=== PATIENT | female | born 2000 | race Hispanic/Latino ===

== ENCOUNTER 2024-01-25 21:55 | Emergency (ER) | payer SELFPAY ==
[~2024-01-25] VITALS: Ht 162.6 cm; Wt 104.2 kg
[2024-01-25] MEDS ORDERED: HYDROCODON-ACE1 EA10 PO (23:07)
[2024-01-25] MEDS ORDERED: DOXYCYCLINE HYCLATE 100 MG HOME.PACK PO ONE (23:15)
[2024-01-25] MEDS ORDERED: HYDROCODONE BIT/ACETAMINOPHEN 5/325 MG 1 TAB HOME.PACK PO ONE (23:15)
[2024-01-25 23:33] VITALS: BP 108/65
== END 2024-01-25 23:34 | disposition home or self-care (01) ==
LOC: ED 21:55
DX: L03.115 Cellulitis of right lower limb (principal)
CPT/HCPCS: A9270